=== PATIENT | male | born 1950 | race Caucasian/White ===

== ENCOUNTER → 2018-09-30 | Outpatient (CLI) | payer OTHER, MEDICARE | LOC: BMCIMAGING 08:37 | PROVIDERS: ATTEND Physician Assistant | DX: M25.561 Pain in right knee (principal) ==

== ENCOUNTER → 2018-10-02 | Outpatient (CLI) | payer OTHER, MEDICARE | LOC: FIMAGING 18:22 | PROVIDERS: ATTEND Physician Assistant | DX: M23.221 Derangement of posterior horn of medial meniscus due to old tear or injury, right knee (principal) ==